=== PATIENT | female | born 1975 | race Two or more races ===

== ENCOUNTER 2020-08-10 08:45 | Emergency (ER) | payer MEDICAID, OTHER ==
[~2020-08-10] VITALS: Ht 152.4 cm; Wt 54.4 kg
[2020-08-10 08:47] VITALS: BP 165/84
== END 2020-08-10 10:18 | disposition home or self-care (01) ==
LOC: ER 08:45
DX: H00.024 Hordeolum internum left upper eyelid (principal)

== ENCOUNTER → 2021-07-04 | Outpatient (CLI) | payer MEDICAID ==
[2021-07-04 09:02] LABS: Basophils # (auto) 0.1 10 ^3/uL (0-0.2); Basophils % (auto) 0.9 % (0.0-2.0); Eosinophils # (auto) 0.1 10 ^3/uL (0-0.8); Lymphocytes # (auto) 1.6 10 ^3/uL (0.4-5.4); Lymphocytes % (auto) 21.6 % (10.0-50.0); Mean Corpuscular Hemoglobin 30.9 pg (28.0-32.0); Mean Corpuscular Hgb Conc. 34.1 g/dL (32.0-36.0); Mean Corpuscular Volume 90.6 fL (80.0-100.0); Monocytes # (auto) 0.4 10 ^3/uL (0-1.3); Monocytes % (auto) 5.9 % (0.0-12.0); Neutrophils # (auto) 5.2 10 ^3/uL (1.6-8.6); Neutrophils % (auto) 70.6 % (37.0-80.0); Nucleated Red Blood Cells % 0.2 %; Red Blood Cells 4.52 10^6/uL (4.0-5.20); Red Cell Distribution Width 12.2 % (11.8-14.3); White Blood Cell 7.4 10^3/uL (4.4-10.8)
[2021-07-04 09:30] LABS: Albumin 3.5 g/dL (3.4-5.0); Calcium 9.1 mg/dL (8.5-10.1); Potassium 4.3 mmol/L (3.5-5.1)
[2021-07-04 09:36] LABS: Bilirubin, Total 0.5 mg/dL (0.2-1.0); Total Protein 7.7 g/dL (6.4-8.2)
== END | disposition home or self-care (01) ==
LOC: LAB 08:30
PROVIDERS: ATTEND Urology
DX: N30.01 Acute cystitis with hematuria (principal)
CPT/HCPCS: 36415; 80053; 85025

== ENCOUNTER 2021-08-28 21:12 | Emergency (ER) | payer MEDICAID ==
[~2021-08-28] VITALS: Ht 154.9 cm; Wt 63.5 kg
[2021-08-29] MEDS ORDERED: TETRACAINE HCL 0.5% OPTH(EYE) SOLN 4ML LEFTEYE ONE (03:00)
[2021-08-29] MEDS ORDERED: FLUORESCEIN SOD OPTH TEST STRIP LEFTEYE ONE (03:00)
[2021-08-29] MEDS ORDERED: AMOX-277 PO (03:39)
[2021-08-29] MEDS ORDERED: TETANUS-DIPTH-ACEL PERTUSSIS 0.5ML SYR Tdap IM ONE (03:45)
[2021-08-29 04:45] VITALS: BP 137/72
== END 2021-08-29 05:33 | disposition home or self-care (01) ==
LOC: ER 21:12
DX: S00.81XA Abrasion of other part of head, initial encounter (principal); W55.03XA Scratched by cat, initial encounter; Y93.89 Activity, other specified; Y92.89 Other specified places as the place of occurrence of the external cause; Y99.8 Other external cause status
CPT/HCPCS: 90471; 90715

== ENCOUNTER 2022-02-24 07:51 | Emergency (ER) | payer MEDICAID ==
[~2022-02-24] VITALS: Ht 154.9 cm; Wt 58.9 kg
[~2022-02-24 07:51] MED LIST: AMOX-277 PO
[2022-02-24 08:44] VITALS: BP 140/89
[2022-02-24] MEDS ORDERED: AZITTAB PO (08:55)
[2022-02-24] MEDS ORDERED: PHEN-430 PO (08:55)
== END 2022-02-24 09:03 | disposition home or self-care (01) ==
LOC: ER 07:51
DX: J06.9 Acute upper respiratory infection, unspecified (principal); Z79.2 Long term (current) use of antibiotics; Z20.822 Contact with and (suspected) exposure to COVID-19
CPT/HCPCS: 36415; 87426; 87804

== ENCOUNTER 2024-10-30 21:00 | Emergency (ER) | payer MEDICAID ==
[~2024-10-30] VITALS: Ht 154.9 cm; Wt 55.0 kg
[~2024-10-30 21:00] MED LIST changes: -AMOX-277 PO; +AMOX875T4 PO; +AZITTAB PO; +PHEN-430 PO
[2024-10-30] MEDS: HYDROcodone-ACET 5/325MG TAB PO ONE (23:30)
[2024-10-30] MEDS: KETOROLAC TROMETH 60MG/2ML VIAL IM ONE (23:30)
--- NOTE | 2024-10-31 00:37 | DVH ---
CLINICAL INDICATION: PAIN TECHNIQUE: 3 views XY L ELBOW 3 VIEW XRAY Comparison: None FINDINGS: No acute fracture, traumatic joint malalignment, or joint effusion. Prominent medial and small latera l mineralization adjacent to the epicondyles. Tiny triceps insertional enthesophyte. No appreciable soft tissue swelling. IMPRESSION: 1. No acute osseous finding of the left elbow.
[2024-10-31] MEDS ORDERED: METH4PAK PO (00:45)
--- NOTE | 2024-10-31 00:45 | ED.PDOC ---
Back pain HPI HPI Comments PT WOKE UP 2 DAYS AGO WITH LEFT ARM PAIN, SINCE IT HAS NOT STOPPED, WORSE WHEN SHE MOVE IT. denies numbness or weakness Chief Complaint: Upper Extremity Time Seen by MD: 21:10 Primary Care Provider: PT UNSURE Reviewed Notes: Nurses Notes, Medications, Allergies Allergies: Coded Allergies: NO KNOWN ALLERGIES (Unverified , 08/10/20) Home Meds Active Scripts Phenylephrine-Brompheniramine- (RYNEX DM) Liq, 10 ML PO Q6HPRN PRN, #120 ML Prov:TOMA BARRERA BRIM POUNCER 02/24/22 Azithromycin (Zithromax Z-Mehran) 250 Mg Tab, 250 MG PO DAILY for 5 Days, #1 PACK Prov:TOMA BARRERA BRIM POUNCER 02/24/22 Amoxicillin & Pot Clavulanate (Amoxicillin/Potassium Cla) 875 Mg Tab, 1 TAB PO BID for 7 Days, #14 TAB 0 Refills Prov:TED ORNELAS 08/29/21 Discontinued Scripts Methylprednisolone (Medrol Dosepak) 4 Mg Mehran, 4 MG PO UD for 6 Days, #21 TAB UAD Prov:ILENE NARAYAN TRACTOR MECHANIC APPRENTICE 10/31/24 Information Source: Patient Mode of Arrival: Ambulatory Past Medical History PAST MEDICAL HISTORY: Denies Surgical History: Denies all surgeries LICENSED VOCATIONAL NURSE History: Denies all LICENSED VOCATIONAL NURSE Hx Family History Family History: Reviewed,noncontributory to illness Social History Smoker: Non-Smoker Alcohol: Denies ETOH Use Drugs: Denies Drug Use Lives In: Home All Other Systems: Reviewed and Negative (see hpi) Physical Exam General Appearance: No Apparent Distress, Normal HEENT: Pharynx Normal Neck: Full Range of Motion, Non-Tender Respiratory: Lungs Clear, No Respiratory Distress, Normal Breath Sounds Cardiovascular: No Murmur, Normal Peripheral Pulses, Regular Rate/Rhythm Breast Exam: Deferred Gastrointestinal: Non Tender, Soft Genitalia: Deferred Pelvic: Deferred Rectal: Deferred Extremities: Normal capillary refill, Normal inspection, Normal range of motion, Non-tender, No pedal edema Musculoskeletal : Location: Left Extremity Location: Elbow (tenderness palpated over lateral epicondyl) Apperance: Normal Neurologic: Alert, No Motor Deficits, Normal Affect, Normal Mood, No Sensory Deficits Cerebellar Function: Normal Reflexes: Normal Skin: Dry, Normal Color, Warm Lymphatic: No Adenopathy Was a procedure done? Was a procedure done?: No Back Pain Differential Dx Differential Diagnosis: Fracture, Musculoskeletal Pain, Strain X-Ray, Labs, Meds, VS Vital Signs Date Time Temp Pulse Resp B/P (MAP) Pulse Ox O2 Delivery O2 Flow Rate FiO2 10/31/24 01:29 98.2 78 18 128/81 (97) 98 98.2 10/31/24 01:29 78 18 98 Room Air 10/30/24 21:01 97.9 82 18 155/93 98 97.9 Images Reviewed?: Images reviewed and evaluated by me Time of 1ST Reevaluation: 21:10 Reevaluation 1ST: Unchanged Reevaluation 2ND: Improved Patient Education/Counseling: Diagnosis, Treatment, Prognosis, Need For Follow Up Family Education/Counseling: No Family Present SEPSIS Sepsis Screen Date sepsis recognized/suspect: Oct 30, 2024 Time Sepsis recognized/suspect: 2104 Recent Procedure: No On Antibiotic Therapy: No Respiratory Rate >20: No Heart Rate >90: No Temp<36 C (96.8 F) or >38.3 C: No SBP <90 or MAP <65 mmHG: No New Acute Mental Status Change: No Is the patient on CPAP, BIPAP,: No Physician Orders L Elbow 3 View Xray (10/30/24 23:16) Vital Signs Date Time Temp Pulse Resp B/P (MAP) Pulse Ox O2 Delivery O2 Flow Rate FiO2 10/31/24 01:29 98.2 78 18 128/81 (97) 98 98.2 10/31/24 01:29 78 18 98 Room Air 10/30/24 21:01 97.9 82 18 155/93 98 97.9 Departure 1 Departure Time of Disposition: 00:44 Impression: Primary Impression: Epicondylitis elbow, medial Qualified Codes: M77.02 - Medial epicondylitis, left elbow Disposition: 01 HOME / SELF CARE / HOMELESS Condition: Stable Discharged With: Self Critical Care Note Critical Care Time?: No Stability Stability form required: ILENE Mijares Oct 31, 2024 00:45
[2024-10-31 01:29] VITALS: BP 128/81; PULSE 78; RESP 18; TEMP 98.2; O2SAT 98
== END 2024-10-31 01:43 | disposition home or self-care (01) ==
LOC: ER 21:00
DX: M77.02 Medial epicondylitis, left elbow (principal); Z79.899 Other long term (current) drug therapy
CPT/HCPCS: 73080; 96372; 99283; J1885